=== PATIENT | male | born 1945 | race Caucasian/White ===

== ENCOUNTER 2019-08-08 | Emergency (ER) | payer SELFPAY ==
[~2019-08-08] MED LIST: ANTIVERT12.5 MG PO; ELTROXIN PO; NAPROSYN500 MG PO
[2019-08-08] MEDS ORDERED: PANTOPRAZOLE SO40 M1 PO (06:52)
[2019-08-08] MEDS ORDERED: NAPROXEN250 MG PO (06:52)
[2019-08-08] MEDS ORDERED: [UNRECOGNIZED DRUG - OTHER] PO (06:53)
[2019-08-08 07:36] LABS: BASO% 1 % (0-3); EOS% 4 % (0-8); HEMATOCRIT 34.7 % (39.0-50.0); HEMOGLOBIN 10.8 g/dl (14.0-18.0); IMMATURE GRANULOCYTES 0.4 % (0.0-5.0); LYMPH% 18 % (15-41); MEAN CORPUSCULAR HGB 27.7 pG CALC (26.0-32.0); MEAN CORPUSCULAR HGB CONC 31.1 g/L CALC (32.0-36.0); MONO% 8 % (2-13); NEUT# 7.62 thou/uL (1.82-7.42); NEUT% 69 % (42-76); PLATELET COUNT 378 thou/uL (130-400); RED CELL DISTRI WIDTH 12.3 % (11.5-15.5)
[2019-08-08 07:59] LABS: ALBUMIN 3.8 g/dL (3.2-5.0); ALKALINE PHOSPHATASE 82 u/l (38-126); ANION GAP 10 (6-22 (CALC)); BILIRUBIN, TOTAL 0.4 mg/dL (0.0-1.4); BUN 23 mg/dL (8-23); BUN/CREATININE RATIO 22 (12-20 (CALC)); C-REACTIVE PROTEIN 8.6 mg/dL (0-0.9); CARBON DIOXIDE 27 mmol/l (22-30); CHLORIDE 106 mmol/l (95-108); CREATININE 1.1 mg/dL (0.7-1.3); GFR > 60 ML/MIN (>=60 (CALC)); GFR FOR AFR.AMER. > 60 ML/MIN (>=60 (CALC)); POTASSIUM 4.5 mmol/l (3.5-5.1); SGOT/AST 30 u/l (19-48); SODIUM 139 mmol/l (137-146); TOTAL PROTEIN 7.2 g/dL (6.3-8.2)
[2019-08-08 08:38] LABS: TSH, 3RD GENERATION 7.57 uIU/mL (0.47 - 4.68)
[2019-08-08] MEDS ORDERED: PREDNISONE20 MG PO (08:53)
== END 2019-08-08 09:05 | disposition home or self-care (01) | DRG 556 ==
PROVIDERS: Family Medicine
DX: M25.512 Pain in left shoulder (principal); M25.511 Pain in right shoulder; M25.562 Pain in left knee; M25.561 Pain in right knee; M25.552 Pain in left hip; M25.551 Pain in right hip